=== PATIENT | female | born 1950 | race Caucasian/White ===

== ENCOUNTER 2021-04-05 11:29 | Outpatient (REF) | payer MEDICARE, OTHER, SELFPAY ==
[2021-04-05 12:22] LABS: MANUAL DIFF FLAG NO
[2021-04-05 13:06] LABS: Basophils Absolute Auto 0.1 X10*3/uL (0.0-0.2); Basophils Percent Auto 0.9 % (0-2); Eosinophils Absolute Auto 0.2 X10*3/uL (0.0-0.4); Eosinophils Percent Auto 3.5 % (0-4); Hematocrit 38.7 % (37-47); Hemoglobin 12.7 g/dl (12.0-16.0); Imm Gran Abs Auto 0.02 X10*3/uL (0.00-0.03); Imm Gran Pct Auto 0.3 % (0.0-0.4); Lymphocytes Absolute Auto 1.7 X10*3/uL (1.2-4.9); Lymphocytes Percent Auto 29.1 % (20-40); Mean Corpuscular HGB Conc 32.8 g/dl (31.0-35.0); Mean Corpuscular Volume 94.4 fL (80-98); Monocytes Absolute Auto 0.4 X10*3/uL (0.1-1.2); Monocytes Percent Auto 7.5 % (2-11); Neutrophils Absolute Auto 3.4 X10*3/uL (2.0-8.3); Neutrophils Percent Auto 58.7 % (45-73); Platelet Count 252 X10*3/uL (160-400); Red Cell Distribution Width 12.1 % (11.0-16.0); White Blood Count 5.7 X10*3/uL (4.8-10.8)
[2021-04-05 13:35] LABS: Alanine Aminotransferase 23 U/L (0-31); Albumin Level 4.4 g/dL (3.5-5.0); Alkaline Phosphatase 84 U/L (39-117); Anion Gap 11 (12-20); Aspartate Amino Transferase 12 U/L (5-31); Bilirubin Total 0.3 mg/dL (0.0-1.0); Blood Urea Nitrogen 24 mg/dL (9-16); Calcium 9.7 mg/dL (8.4-10.2); Carbon Dioxide 30 mmol/L (22-29); Chloride 104 mmol/L (96-108); Estimated Glomerular Filt Rate > 60; Glucose Random 64 mg/dL (60-115); Potassium 4.2 mmol/L (3.3-5.1); Sodium 141 mmol/L (135-145); Total Protein 6.9 g/dL (6.5-8.0)
== END 2021-04-05 11:30 | disposition home or self-care (01) ==
LOC: HO.LAB 11:29
PROVIDERS: PCP Family Medicine; Visit Provider Nurse Practitioner
DX: Z01.818 Encounter for other preprocedural examination (principal); R13.10 Dysphagia, unspecified; D12.6 Benign neoplasm of colon, unspecified; Z80.0 Family history of malignant neoplasm of digestive organs
CPT/HCPCS: 36415; 80053; 85025; 99212

== ENCOUNTER 2021-06-03 10:04 | Day surgery (SDC) | payer MEDICARE, OTHER, SELFPAY ==
[2021-05-28 09:53] VITALS: BMI 17.9
--- NOTE | 2021-05-31 11:49 | HO.ANESPROP2 ---
Documented by User: Hellen Stevenson NP 05/31/21 11:50 HPI - Anesthesia Eval Consult details Narrative: 70yo F for Upper Endoscopy and Colonoscopy PMFSH Active Problems Active Problems: All Active Problems (Updated 05/27/21 @ 16:05 by Renee Tejada, MARJ) Colon cancer screening (Acute) Tubular adenoma of colon (Acute) Family history of colon cancer (Acute) Anxiety (Acute) Dysphagia (Acute) Past Medical History Medical History Anxiety disorder History of palpitations Hypothyroid Osteoporosis Thyroid nodule Family History Family History Mother Colon cancer Breast cancer Maternal Aunt Breast cancer Maternal Aunt Breast cancer Maternal Aunt Breast cancer Father Bone cancer Surgical History Surgical History Hx of colonoscopy [place] teeth extracted Social History Social History Patient Tobacco Use Status: Never used Tobacco Use of substances other than those prescribed or required for medical reasons: No Advance Directives: No Advance Directives Information Provided: Yes Recently lost weight without trying: No Meds Allergies Allergy/AdvReac Type Severity Reaction Status Date / Time penicillin G [PENICILLIN G] Allergy Unknown SEVERE RASH Verified 06/03/21 11:03 Home Medications Medication Instructions Recorded Confirmed Last Taken Type ascorbic acid (vitamin C) 500 mg 1,000 mg PO DAILY cap 04/05/21 05/27/21 Unknown History capsule ctjezuxn-zbk-ymefy acid 0.4 1 tab PO DAILY 04/05/21 05/27/21 Unknown History mg-lycopene 300 mcg-lutein 250 mcg tablet (Complete Multivitamin Adult 50 Plus) Exam Exam Date and Time: May 31, 2021 1149 Height,Weight and Vital Signs: Height 5 ft 8 in Weight 53.524 kg Pertinent Lab Results Pertinent Lab Results: Laboratory Tests 04/05/21 04/05/21 12:18 12:18 WBC 5.7 Hgb 12.7 Hct 38.7 Plt Count 252 Sodium 141 Potassium 4.2 Chloride 104 Carbon Dioxide 30 H BUN 24 H Creatinine 0.67 Assessment and Plan Assessment Anesthesia Assessment: Chart Reviewed Documented by User: Nancy Jose MD 06/03/21 11:23 PMFSH Past Medical History Medical History Anxiety disorder History of palpitations Hypothyroid Osteoporosis Thyroid nodule Family History Family History Mother Colon cancer Breast cancer Maternal Aunt Breast cancer Maternal Aunt Breast cancer Maternal Aunt Breast cancer Father Bone cancer Family history of problems with anesthesia: No Surgical History Surgical History (Reviewed 06/03/21 @ 11: by Nancy Jose MD) Hx of colonoscopy [place] teeth extracted History of Problems with Anesthesia: No Social History Social History Patient Tobacco Use Status: Never used Tobacco Use of substances other than those prescribed or required for medical reasons: No Advance Directives: No Advance Directives Information Provided: Yes Recently lost weight without trying: No Meds Allergies Allergy/AdvReac Type Severity Reaction Status Date / Time penicillin G [PENICILLIN G] Allergy Unknown SEVERE RASH Verified 06/03/21 11:03 Home Medications Medication Instructions Recorded Confirmed Last Taken Type ascorbic acid (vitamin C) 500 mg 1,000 mg PO DAILY cap 04/05/21 05/27/21 Unknown History capsule dtnffuad-grw-coxbu acid 0.4 1 tab PO DAILY 04/05/21 05/27/21 Unknown History mg-lycopene 300 mcg-lutein 250 mcg tablet (Complete Multivitamin Adult 50 Plus) Exam Height,Weight and Vital Signs: Height 5 ft 8 in Weight 53.524 kg Vital Signs Temp Pulse Resp BP Pulse Ox 06/03/21 10:58 98.6 F 68 15 132/60 99 Airway Mallampati Class: II TM Dist: >3cm Neck ROM: Full Loose/Missing/Broken Teeth: No Heart: RRR Lungs: CTAB Assessment and Plan Assessment Anesthesia Assessment: Anesthesia Plan Discussed Final Anesthetic Review Family History of Problems with Anesthesia: No History of Problems with Anesthesia: No NPO: Yes ASA Class: II Final Preanesthetic Review: No Changes in Pt Med Stat, Meds/Allgs Chart Reviewed, Consent Obtained/Reviewed and Anes Risks/Benef Reviewed Patient Risk: Low Procedure Risk: Low Assessment/Block/Sedation in SS: Assess/Block/Sedation-SS Anesthetic Plan Anesthetic Plan: MAC: Disposition: Standard PACU
[2021-06-03 10:58] VITALS: BP 132/60; PULSE 68; RESP 15; TEMP 37; O2SAT 99; BMI 18.5
[2021-06-03] MEDS: Lactated Ringers 1,000 ML 100 ML IVCONT (11:03)
--- NOTE | 2021-06-03 11:55 | MHC.SHP ---
Pre-Procedural Eval Section A Date of Service: 06/03/21 The patient is an INPATIENT: No The History & Physical has been completed within 30 days and I have reviewed it.: No Section B Chief Complaint: Screening, Dysphagia Details of Present Illness: Colon cancer screening, history of colon polyps, dysphagia Relevant Family History (Specify if Yes): Yes Relevant Social History: None Present Medications: see Short Stay Collaborative assessment Medical History: Significant History (History of colon polyps, family history of colon, anxiety) History of Previous Operations: Relevant previous surgery/procedure and date(s) (History of colonoscopy) Allergies: Allergies Allergy/AdvReac Type Severity Reaction Status Date / Time penicillin G [PENICILLIN G] Allergy Unknown SEVERE RASH Verified 06/03/21 11:03 Review of Systems Sugical H&P ROS: Negative: Constitution, Cardiovascular, Respiratory and Gastrointestinal Exam Surgical H&P Exam: Normal: Heart, Normal: Lungs, Normal: Extremities and Normal: Abdomen Plan Diagnosis/Plan: Change (add EGD for dysphagia and bloating) I have reviewed the history and physical and performed a pertinent physical examination on my patient. No changes have occurred unless specified.
--- NOTE | 2021-06-03 12:07 | PM.OP ---
Brief Operative Note Date of Service: 06/03/21 Pre-op diagnosis: Colon cancer screening, history of colon polyps, dysphagia to large pills, abdominal bloating, chronic constipation Post-op diagnosis: other (Colon polyps, diverticulosis) Procedure: FLEXIBLE TRANSORAL UPPER GASTROINTESTINAL ENDOSCOPY WITH BIOPSIES AND COLONOSCOPY TILL CECUM WITH BIOPSIES AND SNARE POLYPECTOMY UPPER ENDOSCOPY Consent: Indications for the procedure and potential complications of bleeding, perforation, reaction to medications and missed diagnosis were discussed with the patient and informed consent was obtained. Instrument: Olympus GIF H 190 mid size upper endoscope Monitoring: Vital signs and clinical assessment, continuous EKG monitoring, Pulse oximetry, Carbon Dioxide monitoring and blood pressure monitoring were done throughout the procedure. Procedure: The patient was placed in the left lateral decubitis position and pre-procedure medications were administered and a bite block was placed. The endoscope was inserted into the mouth and advanced under direct vision to the third part of duodenum. A careful inspection was made as the upper endoscope was withdrawn including a retroflexed examination of the proximal stomach; Findings and interventions are described below. Findings: Larynx: Normal Esophagus: Tortuous esophagus with increased tertiary contractions wiithout stricture or ring. GE junction at 40 cms. No esophagitis or Kilgore's. Stomach: Multiple 5 to 10 mm benign appearing polyps in the gastric body and fundus - biopsied. A 12-15 mm adenomatous appearing polyp removed with a hot snare - some Mild gastric erythema. Biopsies were obtained. Grade 2 flap valve on retroflexed examination of the cardia. Duodenum: Normal bulb and descending duodenum. Biopsies obtained from 3rd part of duodenum to check for celiac sprue. Intervention: Biopsies as noted above COLONOSCOPY PROCEDURE NOTE Consent: Indications for the procedure and potential complications of bleeding, perforation, reaction to medications and missed diagnosis were discussed with the patient and informed consent was obtained. Instrument: Olympus PCF H 190 L variable stiffness pediatric colonoscope Monitoring: Vital signs and clinical assessment, intermittent blood pressure monitoring, continuous EKG monitoring, Pulse oximetry and Carbon Dioxide monitoring were done throughout the procedure. Colon withdrawl time was 25 minutes. Procedure: The patient was placed in the left lateral decubitis position and pre-procedure medications were administered. After a digital rectal examination of the ano-rectum, the video colonoscope was inserted into the rectum and advanced through the colon to the cecum. The colonoscope was slowly withdrawn in a retrograde panoramic fashion and the colon mucosa was carefully examined including a retroflexed view of the rectum. Findings and interventions are described below. Procedure Difficulty: : Colon was long redundant and tortuous and there was recurrent loop formation. Pt was placed in the supine positiob and LLQ pressure was applied to intubate the transverse colon Findings: Terminal Ileum: Not evaluated Cecum: A 9-10 mm sessile polyp removed with a cold snare. Ascending Colon: Scattered diverticulosis Transverse Colon: A 6-7 mm sessile polyp removed with a cold bx. Scattered diverticulosis Descending Colon: Scattered diverticulosis Sigmoid Colon: A 7-8 mm diminutive appearing polyp removed with the cold biopsy. Moderate diverticulosis Rectum: Normal Ano-rectum: Normal Colon preparation: Good after copious irrigation Impression and Post Procedure Diagnosis: Endoscopy Findings: ESOPHAGUS: Tortuous esophagus with increased tertiary contractions wiithout stricture or ring. GE junction at 40 cms. No esophagitis or Kilgore's. STOMACH: Multiple 5 to 10 mm benign appearing polyps in the gastric body and fundus - biopsied. A 12-15 mm adenomatous appearing polyp removed with a hot snare - some Mild gastric erythema. Biopsies were obtained. Grade 2 flap valve on retroflexed examination of the cardia. DUODENUM: Normal - biopsied to check for celiac sprue. Colonoscopy Findings: Three small to medium sized polyps removed. Random biopsies were obtained from the colon. Moderate diverticulosis seen in the entire colon Plan: Await pathology results Patient has an appointment on 06/18/21 in the [facility] with Tesha Hodgson NP. Repeat Colonoscopy interval based on path results - in 3-5 years if polyps are adenomatous and due to a hx of adenomatous colon polyps. Above findings were reviewed with the patient and colon polyps and diverticulosis handouts were given in the discharge area Surgeon: Halima Hall MD Anesthesia: MAC (Mis Burns CRNA) Was an Fiberglass Laminator used for this Procedure?: Yes Fiberglass Laminator: Haley Jones Estimated blood loss (mL): 0 Pathology: other (A. small bowel bxs, R/O celiac B. gastric antrum bxs, R/O H. pylori C. gastric polyps D. cecal polyp E. random colon bxs, R/O microscopic colitis F. transverse colon polyp ) Condition: stable Disposition: PACU
--- NOTE | 2021-06-03 12:08 | P.OP_ITS ---
Operative Note Operative Note Date of Service: 06/03/21 Narrative: Pre-op diagnosis:?Colon cancer screening, history of colon polyps, dysphagia to large pills, abdominal bloating, chronic constipation Post-op diagnosis:?other (Colon polyps, diverticulosis) Procedure:? FLEXIBLE TRANSORAL UPPER GASTROINTESTINAL ENDOSCOPY WITH BIOPSIES AND COLONOSCOPY TILL CECUM WITH BIOPSIES AND SNARE POLYPECTOMY UPPER ENDOSCOPY Consent:?Indications for the procedure and potential complications of bleeding, perforation, reaction to medications and missed diagnosis were discussed with the patient and informed consent was obtained. Instrument:?Olympus GIF H 190 mid size upper endoscope Monitoring: Vital signs and clinical assessment, continuous EKG monitoring, Pulse oximetry, Carbon Dioxide monitoring and blood pressure monitoring were done throughout the procedure. Procedure:?The patient was placed in the left lateral decubitis position and pre-procedure medications were administered and a bite block was placed. The endoscope was inserted into the mouth and advanced under direct vision to the third part of duodenum. A careful inspection was made as the upper endoscope was withdrawn including a retroflexed examination of the proximal stomach; Findings and interventions are described below. Findings: Larynx:? Normal Esophagus:?Tortuous esophagus with increased tertiary contractions wiithout stricture or ring. GE junction at 40 cms. No esophagitis or Kilgore's. Stomach:? Multiple 5 to 10 mm benign appearing polyps in the gastric body and fundus - biopsied. A 12-15 mm adenomatous appearing polyp removed with a hot snare - some Mild gastric erythema. Biopsies were obtained. Grade 2 flap valve on retroflexed examination of the cardia. Duodenum:?Normal bulb and descending duodenum.? Biopsies obtained from 3rd part of duodenum to check for celiac sprue. Intervention:?Biopsies as noted above COLONOSCOPY PROCEDURE NOTE Consent:?Indications for the procedure and potential complications of bleeding, perforation, reaction to medications and missed diagnosis were discussed with the patient and informed consent was obtained. Instrument:?Olympus PCF H 190 L variable stiffness pediatric colonoscope Monitoring:?Vital signs and clinical assessment, intermittent blood pressure monitoring, continuous EKG monitoring, Pulse oximetry and Carbon Dioxide monitoring were done throughout the procedure. Colon withdrawl time was 25 minutes. Procedure:?The patient was placed in the left lateral decubitis position and pre-procedure medications were administered. After a digital rectal examination of the ano-rectum, the video colonoscope was inserted into the rectum and advanced through the colon to the cecum. The colonoscope was slowly withdrawn in a retrograde panoramic fashion and the colon mucosa was carefully examined including a retroflexed view of the rectum. Findings and interventions are described below. Procedure Difficulty:?: ? Colon was long redundant and tortuous and there was recurrent loop formation. Pt was placed in the supine positiob and LLQ pressure was applied to intubate the transverse colon Findings: Terminal Ileum: Not evaluated Cecum:? A 9-10 mm sessile polyp removed with a cold snare. Ascending Colon:??Scattered diverticulosis Transverse Colon:??A 6-7 mm sessile polyp removed with a cold bx.? Scattered diverticulosis Descending Colon:? Scattered diverticulosis Sigmoid Colon:? A 7-8 mm diminutive appearing polyp removed with the cold biopsy.? Moderate diverticulosis Rectum:??Normal Ano-rectum:?Normal Colon preparation:? Good after copious irrigation Impression and Post Procedure Diagnosis: Endoscopy Findings: ESOPHAGUS: Tortuous esophagus with increased tertiary contractions wiithout stricture or ring. GE junction at 40 cms. No esophagitis or Kilgore's. STOMACH: Multiple 5 to 10 mm benign appearing polyps in the gastric body and fundus - biopsied. A 12-15 mm adenomatous appearing polyp removed with a hot snare - some Mild gastric erythema. Biopsies were obtained. Grade 2 flap valve on retroflexed examination of the cardia. DUODENUM: Normal - biopsied to check for celiac sprue. Colonoscopy Findings: Three small to medium sized polyps removed. Random biopsies were obtained from the colon. Moderate diverticulosis seen in the entire colon Plan: Await pathology results Patient has an appointment on 06/18/21 in the GI Clinic with? Tesha Hodgson NP. Repeat Colonoscopy interval based on path results - in 3-5 years if polyps are adenomatous and due to a hx of adenomatous colon polyps. Above findings were reviewed with the patient and colon polyps and diverticulosis handouts were given in the discharge area Surgeon:?Halima Hall MD Anesthesia:?MAC (Mis Burns CRNA) Was an Bisque Kiln Drawer used for this Procedure?:?Yes Bisque Kiln Drawer:?Haley Jones Estimated blood loss (mL):?0 Pathology:?other (A. small bowel bxs, R/O celiac? B. gastric antrum bxs, R/O H. pylori? C. gastric polyps? D. cecal polyp? E. random colon bxs, R/O microscopic colitis? F. transverse colon polyp? ? ) Condition:?stable Disposition:?PACU
[2021-06-03 13:21] VITALS: BP 128/48; PULSE 72; RESP 16; TEMP 36.7; O2SAT 99
[2021-06-03 13:36] VITALS: BP 120/59; PULSE 70; RESP 18; TEMP 36.7; O2SAT 97
== END 2021-06-03 14:20 | disposition home or self-care (01) ==
PROVIDERS: PCP Family Medicine; Visit Provider Internal Medicine Gastroenterology
PROC: (CPT 45385; principal; 2021-06-03 11:00)
DX: Z12.11 Encounter for screening for malignant neoplasm of colon (principal); Z86.010 Personal history of colon polyps; Z80.0 Family history of malignant neoplasm of digestive organs; D12.0 Benign neoplasm of cecum; K63.5 Polyp of colon; K57.30 Diverticulosis of large intestine without perforation or abscess without bleeding; K64.8 Other hemorrhoids; K59.09 Other constipation; K22.89 Other specified disease of esophagus; R13.10 Dysphagia, unspecified; K29.50 Unspecified chronic gastritis without bleeding; K31.7 Polyp of stomach and duodenum; Z88.0 Allergy status to penicillin; E03.9 Hypothyroidism, unspecified; F41.1 Generalized anxiety disorder; M81.0 Age-related osteoporosis without current pathological fracture
CPT/HCPCS: 45385; 45380; 43251; 43239; 88305; 88342; J3010

== ENCOUNTER → 2021-06-20 11:10 | Outpatient (BNVA) | payer MEDICARE, OTHER, SELFPAY | PROVIDERS: PCP Family Medicine; Visit Provider Nurse Practitioner | DX: Z12.11 Encounter for screening for malignant neoplasm of colon (principal); D12.6 Benign neoplasm of colon, unspecified; D13.1 Benign neoplasm of stomach | CPT/HCPCS: 99212 ==

== ENCOUNTER → 2021-08-16 07:58 | Outpatient (BNVA) | payer MEDICARE, OTHER, SELFPAY | PROVIDERS: PCP Family Medicine; Visit Provider Nurse Practitioner | DX: D13.1 Benign neoplasm of stomach (principal); F41.9 Anxiety disorder, unspecified; R13.10 Dysphagia, unspecified | CPT/HCPCS: 99212 ==

== ENCOUNTER → 2021-10-21 11:21 | Outpatient (BNVA) | payer MEDICARE, OTHER, SELFPAY | PROVIDERS: PCP Nurse Practitioner Family; Visit Provider Nurse Practitioner | DX: D13.1 Benign neoplasm of stomach (principal) | CPT/HCPCS: 99212 ==

== ENCOUNTER 2021-12-12 13:52 | Outpatient (REF) | payer MEDICARE, OTHER, SELFPAY ==
[2021-12-12 15:03] LABS: Alanine Aminotransferase 25 U/L (0-31); Albumin Level 4.4 g/dL (3.5-5.0); Alkaline Phosphatase 88 U/L (39-117); Anion Gap 12 (12-20); Aspartate Amino Transferase 12 U/L (5-31); Bilirubin Total 0.4 mg/dL (0.0-1.0); Blood Urea Nitrogen 26 mg/dL (9-16); Calcium 9.3 mg/dL (8.4-10.2); Carbon Dioxide 27 mmol/L (22-29); Chloride 105 mmol/L (96-108); Estimated Glomerular Filt Rate > 60; Glucose Random 93 mg/dL (60-115); Magnesium 2.4 mg/dL (1.6-2.6); Potassium 3.6 mmol/L (3.3-5.1); Sodium 140 mmol/L (135-145)
== END 2021-12-12 13:53 | disposition home or self-care (01) ==
LOC: HO.LAB 13:52
PROVIDERS: PCP Nurse Practitioner Family; Visit Provider Nurse Practitioner
DX: D13.1 Benign neoplasm of stomach (principal)
CPT/HCPCS: 36415; 80053; 83735; 99212

== ENCOUNTER 2022-01-15 10:30 | Day surgery (SDC) | payer MEDICARE, OTHER, SELFPAY ==
--- NOTE | 2022-01-13 12:21 | HO.ANESPROP2 ---
Documented by User: Hellen Stevenson NP 01/13/22 12:23 HPI - Anesthesia Eval Consult details Narrative: 71yo F for Upper Endoscopy s/p EGD and [place] 05/2021 with MAC PMFSH Active Problems Active Problems: All Active Problems (Updated 06/20/21 @ 16:50 by RAUL Skelton) Adenomatous polyp of stomach (Acute) Colon cancer screening (Acute) Tubular adenoma of colon (Acute) Family history of colon cancer (Acute) Anxiety (Acute) Dysphagia (Acute) Past Medical History Medical History Anxiety disorder History of palpitations Hypothyroid Osteoporosis Thyroid nodule Family History Family History Mother Colon cancer Breast cancer Maternal Aunt Breast cancer Maternal Aunt Breast cancer Maternal Aunt Breast cancer Father Bone cancer Family history of problems with anesthesia: No Surgical History Surgical History Hx of colonoscopy [place] teeth extracted History of Problems with Anesthesia: No Social History Social History Patient Tobacco Use Status: Never used Tobacco Advance Directives: No Advance Directives Information Provided: Yes Meds Allergies Allergy/AdvReac Type Severity Reaction Status Date / Time Penicillins Allergy Severe Severe Rash Verified 12/12/21 13:24 penicillin G [PENICILLIN G] Allergy Unknown SEVERE RASH Verified 12/12/21 13:24 Home Medications Medication Instructions Recorded Confirmed Last Taken Type ascorbic acid (vitamin C) 500 mg 1,000 mg PO DAILY 04/05/21 05/27/21 Unknown History capsule tbmhodxr-cks-kwqub acid 0.4 1 tab PO DAILY 04/05/21 05/27/21 Unknown History mg-lycopene 300 mcg-lutein 250 mcg tablet (Complete Multivitamin Adult 50 Plus) digestive enzymes (plant) 87.5 mg mg PO 10/21/21 Unknown History capsule Exam Exam Date and Time: January 13, 2022 1221 Pertinent Lab Results Pertinent Lab Results: Laboratory Tests 04/05/21 12/12/21 12:18 14:18 WBC 5.7 Hgb 12.7 Hct 38.7 Plt Count 252 Sodium 140 Potassium 3.6 Chloride 105 Carbon Dioxide 27 BUN 26 H Creatinine 0.69 Assessment and Plan Assessment Anesthesia Assessment: Chart Reviewed Final Anesthetic Review Family History of Problems with Anesthesia: No History of Problems with Anesthesia: No Documented by User: Nancy Jose MD 01/15/22 11:10 HPI - Anesthesia Eval Consult details Narrative: 71yo F for Upper Endoscopy s/p EGD and [place] 05/2021 with MAC. For repeat EGD secondary to stomach polyp with low grade dysplasia. Has been on omeprazole. PMFSH Active Problems Active Problems: All Active Problems (Updated 06/20/21 @ 16:50 by RAUL Skelton) Adenomatous polyp of stomach (Acute) Colon cancer screening (Acute) Tubular adenoma of colon (Acute) Family history of colon cancer (Acute) Anxiety (Acute) Dysphagia (Acute) Easy bruising recently- thinning skin H/o hypothyroidism- was on medication but was titrated off Past Medical History Medical History Anxiety disorder History of palpitations Hypothyroid Osteoporosis Thyroid nodule Family History Family History Mother Colon cancer Breast cancer Maternal Aunt Breast cancer Maternal Aunt Breast cancer Maternal Aunt Breast cancer Father Bone cancer Surgical History Surgical History Hx of colonoscopy [place] teeth extracted Social History Social History Patient Tobacco Use Status: Never used Tobacco Advance Directives: No Advance Directives Information Provided: Yes Meds Allergies Allergy/AdvReac Type Severity Reaction Status Date / Time Penicillins Allergy Severe Severe Rash Verified 12/12/21 13:24 penicillin G [PENICILLIN G] Allergy Unknown SEVERE RASH Verified 12/12/21 13:24 Home Medications Medication Instructions Recorded Confirmed Last Taken Type ascorbic acid (vitamin C) 500 mg 1,000 mg PO DAILY 04/05/21 05/27/21 Unknown History capsule rtlxsvrk-kjq-rysli acid 0.4 1 tab PO DAILY 04/05/21 05/27/21 Unknown History mg-lycopene 300 mcg-lutein 250 mcg tablet (Complete Multivitamin Adult 50 Plus) digestive enzymes (plant) 87.5 mg mg PO 10/21/21 Unknown History capsule Exam Height,Weight and Vital Signs: Height 5 ft 8 in Weight 52.163 kg Vital Signs Temp Pulse Resp BP Pulse Ox O2 Del Method 01/15/22 11:02 98.0 F 63 18 133/49 L 99 Room Air Airway Mallampati Class: II TM Dist: >3cm Neck ROM: Full Loose/Missing/Broken Teeth: Yes (Missing top right back- extracted) Heart: RRR ?murmur Lungs: CTAB Assessment and Plan Assessment Anesthesia Assessment: Anesthesia Plan Discussed Final Anesthetic Review NPO: Yes ASA Class: II Final Preanesthetic Review: No Changes in Pt Med Stat, Meds/Allgs Chart Reviewed, Consent Obtained/Reviewed and Anes Risks/Benef Reviewed Patient Risk: Low Procedure Risk: Low Assessment/Block/Sedation in SS: Assess/Block/Sedation-SS Anesthetic Plan Anesthetic Plan: MAC: Disposition: Standard PACU
[2022-01-15 10:53] VITALS: BMI 17.4
[2022-01-15 11:02] VITALS: BP 133/49; PULSE 63; RESP 18; TEMP 36.7; O2SAT 99
[2022-01-15] MEDS: Lactated Ringers 1,000 ML 100 ML IVCONT (11:15)
--- NOTE | 2022-01-15 11:15 | MHC.SHP ---
Pre-Procedural Eval Section A Date of Service: 01/15/22 Section B Chief Complaint: Benign neoplasm of stomach Details of Present Illness: stomach polyp with LGD Relevant Family History (Specify if Yes): No Relevant Social History: None Present Medications: see Short Stay Collaborative assessment Medical History: Significant History (Anxiety disorder History of palpitations Hypothyroid Osteoporosis Thyroid nodule) History of Previous Operations: Relevant previous surgery/procedure and date(s) (Hx of colonoscopy [place] teeth extracted) Allergies: Allergies Allergy/AdvReac Type Severity Reaction Status Date / Time Penicillins Allergy Severe Severe Rash Verified 12/12/21 13:24 penicillin G [PENICILLIN G] Allergy Unknown SEVERE RASH Verified 12/12/21 13:24 Review of Systems Sugical H&P ROS: Negative: Constitution, Cardiovascular, Respiratory, Neurological, Psychiatric, Hem-Onc, Allergic/Immunologic, Gastrointestinal, Genitourinary, Musculoskeletal, Integumentary, Endocrine and Eyes/Ears/Nose/Throat Exam Surgical H&P Exam: Normal: HEENT, Normal: Heart, Normal: Lungs, Normal: Extremities, Normal: Abdomen, Normal: Skin and Normal: Neurological Plan Diagnosis/Plan: Unchanged I have reviewed the history and physical and performed a pertinent physical examination on my patient. No changes have occurred unless specified.
--- NOTE | 2022-01-15 11:59 | W.PM.OPN ---
Operative Note Operative Note Date of Service: 01/15/22 Narrative: Procedure Description: EGD Indication: gastric polyp with LGD on last EGD Anesthesia: MAC FLEXIBLE TRANSORAL UPPER GASTROINTESTINAL ENDOSCOPY UPPER ENDOSCOPY Consent: Indications for the procedure and potential complications of bleeding, perforation, reaction to medications and missed diagnosis were discussed with the patient and informed consent was obtained. Instrument: Olympus GIF H 190 J mid size upper endoscope Monitoring: Vital signs and clinical assessment, continuous EKG monitoring, Pulse oximetry, Carbon Dioxide monitoring and blood pressure monitoring were done throughout the procedure. Procedure: The patient was placed in the left lateral decubitis position and pre-procedure medications were administered and a bite block was placed. The endoscope was inserted into the mouth and advanced under direct vision to the third part of duodenum. A careful inspection was made as the upper endoscope was withdrawn including a retroflexed examination of the proximal stomach; Findings and interventions are described below. Findings: Larynx:normal Esophagus: GE junction at 44 cm, diaphragm hiatus at 44 cm, no varices or esophagitis. Stomach: Several fundic appearing polyps noted in proximal stomach and fundus, many were biopsy excised and some removed with cold snare. Grade 3 flap valve on retroflexed examination of the cardia. Gastric mapping also done with bx taken from antrum, greater curve, lesser curve and angularis. Duodenum: Normal bulb and descending duodenum, Intervention: Biopsies as noted above, snare polypectomy of polyps Impression/Findings: gastric polyps PLAN: await bx repeat EGD maybe 6-12 months or earlier depending on path
[2022-01-15 12:07] VITALS: BP 100/46; PULSE 73; RESP 13; TEMP 36.4; O2SAT 97
[2022-01-15 12:22] VITALS: BP 116/54; PULSE 84; RESP 16; O2SAT 97
[2022-01-15 12:37] VITALS: BP 130/65; PULSE 73; RESP 16; TEMP 36.4; O2SAT 97
== END 2022-01-15 13:34 | disposition home or self-care (01) ==
PROVIDERS: PCP Nurse Practitioner Family; Visit Provider Internal Medicine Gastroenterology
PROC: 0DJ08ZZ Inspection of Upper Intestinal Tract, Via Natural or Artificial Opening Endoscopic (ICD-10-PCS; CPT 43235; principal; 2022-01-15 12:00)
DX: D13.1 Benign neoplasm of stomach (principal); K31.7 Polyp of stomach and duodenum; K29.50 Unspecified chronic gastritis without bleeding; K22.2 Esophageal obstruction; K44.9 Diaphragmatic hernia without obstruction or gangrene; K21.9 Gastro-esophageal reflux disease without esophagitis; M81.0 Age-related osteoporosis without current pathological fracture; E03.9 Hypothyroidism, unspecified; E04.1 Nontoxic single thyroid nodule; F41.1 Generalized anxiety disorder; R63.4 Abnormal weight loss; Z68.1 Body mass index [BMI] 19.9 or less, adult; Z79.899 Other long term (current) drug therapy; Z88.0 Allergy status to penicillin
CPT/HCPCS: 43251; 43239; 88305; 88342; J3010

== ENCOUNTER → 2022-02-06 14:15 | Outpatient (BNVA) | payer MEDICARE, OTHER, SELFPAY | PROVIDERS: PCP Nurse Practitioner Family; Visit Provider Nurse Practitioner | DX: D13.1 Benign neoplasm of stomach (principal); R13.10 Dysphagia, unspecified; D12.6 Benign neoplasm of colon, unspecified | CPT/HCPCS: 99212 ==